=== PATIENT | female | born 1950 | race American Indian/Alaskan Native ===

== ENCOUNTER 2023-05-27 10:16 | Emergency (ER) | payer MEDICARE, OTHER ==
[2023-05-27 10:50] VITALS: BP 113/74; PULSE 118
[2023-05-27] MEDS ORDERED: Lactated Ringers 1,000 ML IV ONE (11:26)
[2023-05-27] MEDS ORDERED: Ondansetron 4 MG/2 ML SDV IVPUSH ONE (11:27)
[2023-05-27] MEDS ORDERED: Aluminum Hydroxide/Magnesium Hydroxide/Simethicone Susp 30 ML Cup PO ONE (11:38)
[2023-05-27] MEDS ORDERED: Lidocaine 2% Viscous Solution 15 ML UD PO ONE (11:38)
[2023-05-27 11:56] LABS: APPEARANCE,URINE CLEAR (CLEAR); BILIRUBIN,URINE SMALL (NEGATIVE); COLOR,URINE DARK YELLOW (YELLOW); GLUCOSE,URINE NEGATIVE (NEGATIVE); KETONES,URINE 80 (NEGATIVE); LEUKOCYTE ESTERASE,URINE TRACE (NEGATIVE); NITRITE,URINE NEGATIVE (NEGATIVE); OCCULT BLOOD,URINE NEGATIVE (NEGATIVE); PH,URINE 6.5 (5.0-9.0); PROTEIN,URINE 30 (NEGATIVE); UROBILINOGEN,URINE >=8.0 mg/dL (0.2-1.0)
[2023-05-27 12:03] LABS: AMORPHOUS SEDIMENT,URINE MODERATE /HPF (NOT SEEN); BACTERIA,URINE MODERATE /HPF (0-FEW/HPF); EPITHELIAL CELLS,URINE FEW /HPF (NOT SEEN); MUCUS,URINE MODERATE /LPF (NOT SEEN)
[2023-05-27 12:04] LABS: RBC,URINE 0-5 /HPF (0-5)
[2023-05-27 12:09] LABS: ALBUMIN 2.6 g/dL (3.4-5.0); ANION GAP 9.6 mEq/L (7-13); BILIRUBIN TOTAL 0.4 mg/dL (0.2-1.0); BUN/CREATININE RATIO 35.1 (No establ ref range); CALCIUM 8.6 mg/dL (8.5-10.1); CREATININE 0.74 mg/dL (0.55-1.02); EST CRCL DRUG DOSING (CG) 47.91 mL/min; MAGNESIUM 1.9 mg/dL (1.8-2.4); POTASSIUM,K 3.6 mmol/L (3.5-5.1); PROTEIN TOTAL,TP 6.7 g/dL (6.4-8.2)
[2023-05-27 12:10] LABS: A/G RATIO 0.63
[2023-05-27] MEDS ORDERED: Magnesium Hydroxide 400 MG/5 ML Susp 30 ML Cup PO ONE (12:28)
[2023-05-27] MEDS ORDERED: Polyethylene Glycol 3350 Powder 17 GM Packet PO ONE (13:41)
== END 2023-05-27 15:37 | disposition home or self-care (01) ==
LOC: DL.ED 10:16
DX: K59.00 Constipation, unspecified (principal); R10.13 Epigastric pain; I10 Essential (primary) hypertension; E78.00 Pure hypercholesterolemia, unspecified; K21.9 Gastro-esophageal reflux disease without esophagitis; E11.9 Type 2 diabetes mellitus without complications; Z86.16 Personal history of COVID-19; Z79.82 Long term (current) use of aspirin; Z79.899 Other long term (current) drug therapy; Z79.84 Long term (current) use of oral hypoglycemic drugs; Z88.8 Allergy status to other drugs, medicaments and biological substances; Z88.5 Allergy status to narcotic agent
CPT/HCPCS: 36415; 74022; 80053; 81001; 83690; 83735; 87086; 96361; 96374; 99284; 99284-25; A9270-GY; J2405; J7120

== ENCOUNTER 2023-05-28 15:57 | Emergency (ER) | payer MEDICARE, OTHER ==
[2023-05-28] MEDS ORDERED: Lactated Ringers 1,000 ML IV ONE (16:14)
[2023-05-28] MEDS ORDERED: Ondansetron 4 MG/2 ML SDV IVPUSH ONE (16:14)
[2023-05-28] MEDS ORDERED: Iopamidol 612 MG/ML 100 ML Bottle IVPUSH ONE (16:16)
[2023-05-28] MEDS ORDERED: Aluminum Hydroxide/Magnesium Hydroxide/Simethicone Susp 30 ML Cup PO ONE (16:18)
[2023-05-28] MEDS ORDERED: Lidocaine 2% Viscous Solution 15 ML UD PO ONE (16:18)
[2023-05-28 16:33] LABS: BASOPHILS PERCENT AUTO 0.2 % (0.0-1.0); EOSINOPHILS PERCENT AUTO 0.2 % (1.0-3.0); HEMATOCRIT 26.6 % (37.0-47.0); HEMOGLOBIN 8.4 g/dL (12.0-16.0); LYMPHOCYTES PERCENT AUTO 14.7 % (20.5-50.1); MEAN CORPUSCULAR HEMOGLOBIN 26.5 pg (27.0-34.0); MEAN CORPUSCULAR HGB CONC 31.6 g/dL (33.0-35.0); MEAN CORPUSCULAR VOLUME 83.9 fL (80-100); MONOCYTES PERCENT AUTO 8.4 % (2-8); NEUTROPHILS PERCENT AUTO 76.5 % (42.2-75.2); PLATELET COUNT,PLT 685 10^3/uL (150-450); RED BLOOD CELL COUNT 3.17 10^6/uL (4.2-5.4); WHITE BLOOD CELL COUNT,WBC 14.9 10^3/uL (5.0-10.0)
[2023-05-28 16:49] LABS: ALBUMIN 2.4 g/dL (3.4-5.0); ANION GAP 9.3 mEq/L (7-13); BILIRUBIN TOTAL 0.4 mg/dL (0.2-1.0); BUN/CREATININE RATIO 25.4 (No establ ref range); CALCIUM 8.2 mg/dL (8.5-10.1); CREATININE 0.67 mg/dL (0.55-1.02); EST CRCL DRUG DOSING (CG) 52.91 mL/min; MAGNESIUM 1.9 mg/dL (1.8-2.4); POTASSIUM,K 3.3 mmol/L (3.5-5.1); PROTEIN TOTAL,TP 6.6 g/dL (6.4-8.2)
[2023-05-28 16:50] LABS: A/G RATIO 0.57
[2023-05-28] MEDS ORDERED: Morphine 2 MG/ML SYRINGE IVPUSH ONE (17:32)
[2023-05-28] MEDS ORDERED: Lactated Ringers 500 ML IV ONE (18:29)
[2023-05-28] MEDS ORDERED: Pantoprazole 40 MG Vial IVPUSH ONE (18:42)
[2023-05-28] MEDS ORDERED: Take Home: Promethazine 25 MG, 4 Tab Pack PO ONE (18:44)
[2023-05-28 19:52] VITALS: BP 137/78; PULSE 95
== END 2023-05-28 20:00 | disposition home or self-care (01) ==
LOC: DL.ED 15:57
DX: R10.13 Epigastric pain (principal); R11.2 Nausea with vomiting, unspecified; I10 Essential (primary) hypertension; E78.00 Pure hypercholesterolemia, unspecified; K21.9 Gastro-esophageal reflux disease without esophagitis; E11.9 Type 2 diabetes mellitus without complications; Z86.16 Personal history of COVID-19; Z90.49 Acquired absence of other specified parts of digestive tract; Z90.710 Acquired absence of both cervix and uterus; Z79.82 Long term (current) use of aspirin; Z79.899 Other long term (current) drug therapy; Z88.1 Allergy status to other antibiotic agents; Z88.5 Allergy status to narcotic agent
CPT/HCPCS: 36415; 74177; 80053; 83690; 83735; 84484; 85025; 93005; 93010; 96361; 96374; 96375; 99284; 99284-25; A9270-GY; C9113; J2270; J2405; J7120; Q9967

== ENCOUNTER → 2023-06-23 | Day surgery (SDC) | payer MEDICARE, OTHER ==
[~2023-06-23] MED LIST: Acetaminophen 325 MG Tab PO PRN; Acetaminophen/Codeine 300-30 MG Tab PO PRN; Apraclonidine 0.5% Ophth Soln 5 ML Bot EYELF ONE; Balanced Salt Solution Ophth Irrig 500 ML Bottle IOCULAR ONE; Cataract Ophth Solution EYELF ONE; Chondroitin Sulfate/Hyaluronate Sodium Ophth Inj 0.75 ML Syringe EYELF ONE; Chondroitin Sulfate/Hyaluronate Sodium Ophth Inj 0.75 ML Syringe EYERT ONE; Dexamethasone 4 MG/ML SDV ONE; Dexamethasone/Neomycin/Polymyxin B Ophth Oint 3.5 GM Tube EYELF ONE; Diclofenac Sodium 0.1% Ophth Soln 5 ML Bottle EYELF ONE; Lidocaine 1% 30 ML SDV ONE; Moxifloxacin 0.5% Ophth Soln 3 ML Bottle EYELF ONE; Ondansetron 4 MG/2 ML SDV IVPUSH PRN; Phenylephrine 10% Ophth Soln 5 ML Bot EYELF PRN; Povidone-Iodine 5% Sterile Ophth Soln 30 ML Bottle EYELF ONE; Povidone-Iodine 5% Sterile Ophth Soln 30 ML Bottle EYERT ONE; Proparacaine 0.5% Ophth Soln 15 ML Bottle EYELF ONE; Proparacaine 0.5% Ophth Soln 15 ML Bottle EYERT ONE; Sodium Chloride 0.9% 10 ML Syringe FLUSH PRN; Timolol Maleate 0.5% Ophth Soln 5 ML Bottle EYELF ONE; Tropicamide 1% Ophth Soln 15 ML Bottle EYELF ONE; Vancomycin 500 MG SDV EYELF ONE; Vancomycin 500 MG SDV EYERT ONE
[2023-06-23 09:15] VITALS: BP 129/51
[2023-06-23 09:38] VITALS: PULSE 64
== END | disposition home or self-care (01) ==
LOC: DL.SDS 07:19
PROVIDERS: ATTEND Ophthalmology
DX: H25.812 Combined forms of age-related cataract, left eye (principal); E11.9 Type 2 diabetes mellitus without complications; Z88.8 Allergy status to other drugs, medicaments and biological substances
CPT/HCPCS: 00142; 99100; A9270-GY; J1100; J3370; J3490

== ENCOUNTER 2023-07-07 07:33 | Day surgery (SDC) | payer MEDICARE, OTHER ==
[~2023-07-07 07:33] MED LIST changes: -Acetaminophen 325 MG Tab PO PRN; -Apraclonidine 0.5% Ophth Soln 5 ML Bot EYELF ONE; -Balanced Salt Solution Ophth Irrig 500 ML Bottle IOCULAR ONE; -Cataract Ophth Solution EYELF ONE; -Chondroitin Sulfate/Hyaluronate Sodium Ophth Inj 0.75 ML Syringe EYELF ONE; -Chondroitin Sulfate/Hyaluronate Sodium Ophth Inj 0.75 ML Syringe EYERT ONE; -Dexamethasone 4 MG/ML SDV ONE; -Dexamethasone/Neomycin/Polymyxin B Ophth Oint 3.5 GM Tube EYELF ONE; -Diclofenac Sodium 0.1% Ophth Soln 5 ML Bottle EYELF ONE; -Lidocaine 1% 30 ML SDV ONE; -Moxifloxacin 0.5% Ophth Soln 3 ML Bottle EYELF ONE; -Phenylephrine 10% Ophth Soln 5 ML Bot EYELF PRN; -Povidone-Iodine 5% Sterile Ophth Soln 30 ML Bottle EYELF ONE; -Povidone-Iodine 5% Sterile Ophth Soln 30 ML Bottle EYERT ONE; -Proparacaine 0.5% Ophth Soln 15 ML Bottle EYELF ONE; -Proparacaine 0.5% Ophth Soln 15 ML Bottle EYERT ONE; -Sodium Chloride 0.9% 10 ML Syringe FLUSH PRN; -Timolol Maleate 0.5% Ophth Soln 5 ML Bottle EYELF ONE; -Tropicamide 1% Ophth Soln 15 ML Bottle EYELF ONE; -Vancomycin 500 MG SDV EYELF ONE; -Vancomycin 500 MG SDV EYERT ONE
[2023-07-07] MEDS: Sodium Chloride 0.9% 10 ML Syringe FLUSH PRN (08:35)
[2023-07-07] MEDS: Povidone-Iodine 5% Sterile Ophth Soln 30 ML Bottle EYERT ONE ×2 (09:20→10:38)
[2023-07-07] MEDS: Proparacaine 0.5% Ophth Soln 15 ML Bottle EYERT ONE ×2 (09:20→10:37)
[2023-07-07] MEDS: Moxifloxacin 0.5% Ophth Soln 3 ML Bottle EYERT ONE (09:21)
[2023-07-07] MEDS: Phenylephrine 10% Ophth Soln 5 ML Bot EYERT PRN (09:21)
[2023-07-07] MEDS: Tropicamide 1% Ophth Soln 15 ML Bottle EYERT ONE (09:21)
[2023-07-07] MEDS: Timolol Maleate 0.5% Ophth Soln 5 ML Bottle EYERT ONE (09:21)
[2023-07-07] MEDS: Cataract Ophth Solution EYERT ONE (09:22)
[2023-07-07] MEDS: Lidocaine 1% 30 ML SDV ONE (10:43)
[2023-07-07] MEDS: Balanced Salt Solution Ophth Irrig 500 ML Bottle EYERT ONE (10:45)
[2023-07-07] MEDS: Vancomycin 500 MG SDV EYERT ONE (10:46)
[2023-07-07] MEDS: Chondroitin Sulfate/Hyaluronate Sodium Ophth Inj 0.75 ML Syringe EYERT ONE (10:46)
[2023-07-07] MEDS: Apraclonidine 0.5% Ophth Soln 5 ML Bot EYERT ONE (10:48)
[2023-07-07] MEDS: Diclofenac Sodium 0.1% Ophth Soln 5 ML Bottle EYERT ONE (10:49)
[2023-07-07] MEDS: Dexamethasone/Neomycin/Polymyxin B Ophth Oint 3.5 GM Tube EYERT ONE (10:50)
[2023-07-07] MEDS: Acetaminophen 325 MG Tab PO PRN (11:22)
[2023-07-07 11:25] VITALS: BP 101/54; PULSE 87
== END 2023-07-07 11:40 | disposition home or self-care (01) ==
LOC: DL.SDS 07:33
PROVIDERS: ATTEND Ophthalmology
DX: H26.8 Other specified cataract (principal); E87.6 Hypokalemia; E11.9 Type 2 diabetes mellitus without complications; I10 Essential (primary) hypertension; Z79.899 Other long term (current) drug therapy; Z88.5 Allergy status to narcotic agent; Z88.8 Allergy status to other drugs, medicaments and biological substances
CPT/HCPCS: A9270-GY; J3370; J3490

== ENCOUNTER 2023-07-23 05:48 | Day surgery (SDC) | payer MEDICARE, OTHER ==
[2023-07-23] MEDS ORDERED: Dextrose 5%-0.45% NaCl 1,000 ML IV SCH (06:00)
[2023-07-23] MEDS ORDERED: fentaNYL 100 MCG/2 ML SDV ONE ×2 (06:04→07:01)
[2023-07-23] MEDS ORDERED: Midazolam 1 MG/ML 2 ML SDV ONE ×2 (06:04→07:01)
[2023-07-23] MEDS ORDERED: fentaNYL 100 MCG/2 ML SDV IV ONE ×2 (07:10→07:11)
[2023-07-23] MEDS ORDERED: Midazolam 1 MG/ML 2 ML SDV IV ONE ×2 (07:11→07:12)
[2023-07-23 08:33] VITALS: BP 107/41; PULSE 78
== END 2023-07-23 09:16 | disposition home or self-care (01) ==
LOC: DL.ENDO 05:48
PROVIDERS: ATTEND Internal Medicine Gastroenterology
DX: C16.3 Malignant neoplasm of pyloric antrum (principal); K29.50 Unspecified chronic gastritis without bleeding; K31.A0 Gastric intestinal metaplasia, unspecified; K44.9 Diaphragmatic hernia without obstruction or gangrene; E11.9 Type 2 diabetes mellitus without complications; I10 Essential (primary) hypertension; E78.5 Hyperlipidemia, unspecified; Z89.512 Acquired absence of left leg below knee; Z90.49 Acquired absence of other specified parts of digestive tract; Z79.899 Other long term (current) drug therapy; Z88.8 Allergy status to other drugs, medicaments and biological substances
CPT/HCPCS: 87077; 88112; 88305; 88341; 88342; 88360; J2250; J3010; J7042

== ENCOUNTER 2023-08-24 12:05 | Emergency (ER) | payer MEDICARE, OTHER ==
[2023-08-24 12:51] LABS: HEMOGLOBIN 5.3 g/dL (12.0-16.0)
[2023-08-24 17:25] VITALS: BP 109/41; PULSE 63
== END 2023-08-24 17:37 | disposition home or self-care (01) ==
LOC: DL.ED 12:05
DX: D64.9 Anemia, unspecified (principal); I10 Essential (primary) hypertension; E78.00 Pure hypercholesterolemia, unspecified; K21.9 Gastro-esophageal reflux disease without esophagitis; E11.9 Type 2 diabetes mellitus without complications; Z88.6 Allergy status to analgesic agent; Z88.5 Allergy status to narcotic agent; Z88.8 Allergy status to other drugs, medicaments and biological substances; Z86.16 Personal history of COVID-19; Z95.0 Presence of cardiac pacemaker; Z79.82 Long term (current) use of aspirin; Z79.4 Long term (current) use of insulin; Z79.899 Other long term (current) drug therapy
CPT/HCPCS: 36415; 36430; 85014; 85018; 86850; 86900; 86901; 86920; 86922; 99284; P9016; 99283